=== PATIENT | male | born 1960 | race Caucasian/White ===

== ENCOUNTER 2018-12-07 09:19 | Emergency (ER) | payer BC, MEDICARE ==
[~2018-12-07] VITALS: Ht 185.4 cm; Wt 108.9 kg
[~2018-12-07 09:19] MED LIST: AMOCLA875 PO; AZIT250 PO
[2018-12-07] MEDS ORDERED: METPRE4DP PO (11:49)
[2018-12-07] MEDS ORDERED: Percocet 5-3251 EACH PO (11:49)
== END 2018-12-07 12:25 | disposition home or self-care (01) ==
LOC: ER 09:19
DX: M54.17 Radiculopathy, lumbosacral region (principal); Z87.891 Personal history of nicotine dependence; Z88.1 Allergy status to other antibiotic agents
CPT/HCPCS: 36415; 96374; 96375; 96376; 99283-25; J1100; J1170; J1885; J2405

== ENCOUNTER 2019-01-04 08:07 | Emergency (ER) | payer BC, MEDICARE ==
[~2019-01-04] VITALS: Ht 185.4 cm; Wt 106.6 kg
[~2019-01-04 08:07] MED LIST changes: +METPRE4DP PO; +Percocet 5-3251 EACH PO
[2019-01-04] MEDS ORDERED: IBUP800 PO (08:27)
[2019-01-04] MEDS ORDERED: FLEXERIL PO (08:27)
[2019-01-04] MEDS ORDERED: HYDR1TAB94 PO (09:40)
[2019-01-04] MEDS ORDERED: PRED10 PO (09:59)
== END 2019-01-04 10:07 | disposition home or self-care (01) ==
LOC: ER 08:07
DX: G89.18 Other acute postprocedural pain (principal); M54.16 Radiculopathy, lumbar region; Z88.1 Allergy status to other antibiotic agents; Z79.899 Other long term (current) drug therapy
CPT/HCPCS: 93971; 96372-59; 96374; 99283-25; J1170; J1885

== ENCOUNTER 2019-11-15 07:38 | Observation (INO) | payer BC, MEDICARE ==
[~2019-11-15] VITALS: Ht 188 cm; Wt 110.0 kg
[~2019-11-15 07:38] MED LIST changes: +FLEXERIL PO; +HYDR1TAB94 PO; +IBUP800 PO; +PRED10 PO
[2019-11-15 08:17] LABS: BASOPHILS ABSOLUTE AUTO 0.06 K/mm3 (0.00-0.23); BASOPHILS PERCENT AUTO 1 % (0-2); EOSINOPHILS ABSOLUTE AUTO 0.26 K/mm3 (0.00-0.68); EOSINOPHILS PERCENT AUTO 4 % (0-6); Hematocrit 50.3 % (37.0-53.0); Hemoglobin 17.1 g/dL (13.5-17.5); IMMATURE GRAN ABSOLUTE AUTO 0.01 K/mm3 (0.00-0.10); IMMATURE GRAN PERCENT AUTO 0 % (0-1); LYMPHOCYTES ABSOLUTE AUTO 2.63 K/mm3 (0.84-5.20); LYMPHOCYTES PERCENT AUTO 41 % (21-46); MONOCYTES PERCENT AUTO 9 % (4-13); Mean Corpuscular HGB 31.6 pg (26.0-34.0); Mean Corpuscular Volume 93 fL (80-100); Mean Platelet Volume 11.4 fL (9.1-12.4); NEUTROPHILS ABSOLUTE AUTO 2.88 K/mm3 (1.96-9.15); NEUTROPHILS PERCENT AUTO 45 % (41-73); Platelet Count 168 K/mm3 (150-400); RDW Coefficient Variation 13.2 % (11.7-14.2); RDW Standard Deviation 44.7 fL (35.1-46.3); Red Blood Cell Count 5.41 M/mm3 (4.30-5.90); White Blood Cell Count 6.44 K/mm3 (4.00-11.30)
[2019-11-15 08:33] LABS: Alanine Aminotransfer (ALT/SGP 84 U/L (12-78); Albumin, Blood 4.6 g/dL (3.4-5.0); Albumin/Globulin Ratio 1.3 (0.8-1.8); Alk Phos 68 U/L (50-136); Anion Gap 10 mmol/L (6-16); Aspartate Aminotrans (AST/SGOT 54 U/L (12-37); Bilirubin, Total 0.9 mg/dL (0.1-1.0); Blood Urea Nitrogen 17 mg/dL (8-24); Bun/Creatinine Ratio 18.4 (12.0-20.0); CO2, Blood 24 mmol/L (21-32); Calcium, Blood 9.5 mg/dL (8.5-10.1); Chloride, Blood 105 mmol/L (98-108); Creatinine, Blood 0.92 mg/dL (0.60-1.20); Globulin, Blood 3.5 g/dL (2.2-4.0); Glomerular Filtration Rate >60 (60-); Glucose, Blood 132 mg/dL (70-99); Potassium, Blood 4.3 mmol/L (3.5-5.5); Sodium, Blood 139 mmol/L (136-145); Total Protein, Blood 8.1 g/dL (6.4-8.2)
--- NOTE | 2019-11-15 11:42 | NUR ---
History, Chart, Medications and Allergies reviewed before start of procedure. Lungs clear T/O to Auscultation. Patient confirms NPO status and agrees with scheduled surgery. Pre-Op teaching done. Pt verbalizes understanding.
--- NOTE | 2019-11-15 12:09 | NUR ---
11/15/19 1209 Zac Sommers History, Chart, Medications and Allergies reviewed before start of procedure.MONITOR INTACT WITH CONTINUOUS PULSE OXIMETRY AND INTERMITTENT BP.3-LEAD EKG REVIEWED WITH PHYSICIAN PRIOR TO START OF PROCEDURE.O2 VIA N/C INTACT THROUGHOUT SEDATION/PROCEDURE. Patient confirms NPO status and agrees with scheduled surgery.PATIENT DETERMINED TO BE ASA APPROPRIATE FOR PROPOFOL SEDATION PRIOR TO START OF PROCEDURE BY DR. FARNSWORTH.
[2019-11-15] MEDS ORDERED: OMEPRAZOLE20 MG PO (15:09)
--- NOTE | 2019-11-15 16:02 | NUR ---
PT ARRIVED UP TO UNIT AOX4 AND COOPERATIVE OF CARE. PT STATED HE FELT MUCH BETTER. PT'S SCOPE DID NOT SHOW ANY PROBLEMS WITH ULCERS. PT ABLE TO AMBULATE WELL, LSC, DENIED PAIN AND STATED HE WANTED TO DISCHARGE. SPOKE WITH DR YAO AND HE DICHARGED IMMEDIATELY. PT TOOK ALL PERSONAL BELONGINGS AND WAS ESCORTED TO N ENTRANCE VIA WHEELCHAIR. PT WAS CALM AND RELAXED ON HIS WAY OUT. TO TRANSPORT. PRESCRIPTION FAXED TO PHARMACY.
== END 2019-11-15 15:57 | disposition home or self-care (01) ==
LOC: ER 07:38 → MEDS 07:39
PROVIDERS: Emergency Medicine; Student in an Organized Health Care Education/Training Program; ADMIT Internal Medicine
PROC: 0DB98ZX Excision of Duodenum, Via Natural or Artificial Opening Endoscopic, Diagnostic (ICD-10-PCS; principal; 2019-11-15 13:30)
PROC: 0DB48ZX Excision of Esophagogastric Junction, Via Natural or Artificial Opening Endoscopic, Diagnostic (ICD-10-PCS; principal; 2019-11-15 13:30)
DX: K29.40 Chronic atrophic gastritis without bleeding (principal); B96.81 Helicobacter pylori [H. pylori] as the cause of diseases classified elsewhere; K57.30 Diverticulosis of large intestine without perforation or abscess without bleeding; R74.0 Nonspecific elevation of levels of transaminase and lactic acid dehydrogenase [LDH]; R00.0 Tachycardia, unspecified; K76.0 Fatty (change of) liver, not elsewhere classified; G89.29 Other chronic pain; M54.9 Dorsalgia, unspecified; Z88.1 Allergy status to other antibiotic agents; Z79.899 Other long term (current) drug therapy
CPT/HCPCS: 36415; 74176; 80053; 83690; 84484; 85025; 88305; 88342; 93005; 93010; 96374; 96375; 96376; 99285-25; C9113; J1170; J2250; J2405; J2550; J2704; J3010; J7030; J7120

== ENCOUNTER → 2020-01-21 | Outpatient (CLI) | payer BC, MEDICARE ==
[~2020-01-21] MED LIST changes: +OMEPRAZOLE20 MG PO
== END | disposition home or self-care (01) ==
LOC: LAB 13:57 → LAB SHORT 13:57
DX: L08.9 Local infection of the skin and subcutaneous tissue, unspecified (principal)
CPT/HCPCS: 87070; 87075; 87076; 87205

== ENCOUNTER 2021-10-06 11:25 | Day surgery (SDC) | payer BC, MEDICARE ==
[~2021-10-06] VITALS: Ht 185.4 cm; Wt 114.9 kg
--- NOTE | 2021-10-06 13:06 | NUR ---
10/06/21 1306 Cinda Philip TIME OUT AT 1255. VERIFIED CORRECT PT, PROCEEDURE, LOCATION, AND ALLERGIES. NO QUESTIONS OR CONCERNS FROM THE PT. DR. HOPPER ADMINISTERED RELAXING MEDICATION AT 1256. VS STABLE THROUGHTOUT PROCEEDURE. PT TOLERATED WELL.
--- NOTE | 2021-10-06 14:56 | NUR ---
10/06/21 1456 Genevieve Marx PT NAUSEATED, IV REGLAN GIVEN. COOL CLOTH ON FOREHEAD, AT BEDSIDE.
== END 2021-10-06 16:00 | disposition home or self-care (01) ==
LOC: ORSCSDS 11:25
PROVIDERS: Orthopaedic Surgery
PROC: 0RNK4ZZ Release Left Shoulder Joint, Percutaneous Endoscopic Approach (ICD-10-PCS; principal; 2021-10-06 13:00)
PROC: 0LS44ZZ Reposition Left Upper Arm Tendon, Percutaneous Endoscopic Approach (ICD-10-PCS; principal; 2021-10-06 13:00)
PROC: 0LQ24ZZ Repair Left Shoulder Tendon, Percutaneous Endoscopic Approach (ICD-10-PCS; principal; 2021-10-06 13:00)
DX: M75.112 Incomplete rotator cuff tear or rupture of left shoulder, not specified as traumatic (principal); M75.22 Bicipital tendinitis, left shoulder; M75.42 Impingement syndrome of left shoulder; M19.012 Primary osteoarthritis, left shoulder; E66.9 Obesity, unspecified
CPT/HCPCS: A9270; C1713; J0171; J0690; J1100; J1885; J2250; J2405; J2550; J2704; J2710; J2765; J3010; J7120